=== PATIENT | female | born 1985 | race Caucasian/White ===

== ENCOUNTER 2024-10-27 21:55 | Emergency (ER) | payer SELFPAY ==
[2024-10-27] VITALS (8 sets, daily range): BP systolic 119–138; BP diastolic 79–99
[~2024-10-27] VITALS: Ht 152.4 cm; Wt 68.1 kg
[2024-10-27] MEDS ORDERED: SODIUM CHLORIDE 0.9% 1,000 ML IV ONE (22:10)
[2024-10-27] MEDS ORDERED: ASPIRINCHW 81MG PO (22:12)
[2024-10-27] MEDS ORDERED: KETOROLAC TROMETHAMINE 30 MG/ML SDV IV ONE (22:15)
[2024-10-27 22:30] LABS: BASO% 0.2 % (0-3); EOS% 1.9 % (0-8); HEMATOCRIT 40.2 % (37.0-47.0); HEMOGLOBIN 13.3 g/dl (12.0-16.0); LYMPH% 30.9 % (15-41); MEAN CELL VOLUME 91.8 fL CALC (80.0-100.0); MEAN CORPUSCULAR HGB 30.4 pG CALC (26.0-32.0); MEAN CORPUSCULAR HGB CONC 33.1 g/dL CAL (32.0-36.0); MONO% 9.8 % (2-13); NEUT# 2.44 thou/uL (2.00-7.15); NEUT% 57.2 % (42-76); RED BLOOD COUNT 4.38 mill/uL (4.20-5.60)
[2024-10-27 22:53] LABS: ALBUMIN 4.4 g/dL (3.2-5.0); BILIRUBIN, TOTAL 0.5 mg/dL (0.02-1.3); CREATININE 0.8 mg/dL (0.5-1.0); POTASSIUM 3.8 mmol/l (3.5-5.1)
[2024-10-28] VITALS: BP 113/84
[2024-10-28] MEDS ORDERED: traMADol HCL 50 MG/TAB PO ONE (00:25)
[2024-10-28 00:27] LABS: URINE BILIRUBIN - DIPSTICK Negative (NEGATIVE); URINE BLOOD DIPSTICK Large (NEGATIVE); URINE COLOR Yellow; URINE GLUCOSE - DIPSTICK Negative (NEGATIVE); URINE KETONE Trace mg/dL (NEGATIVE); URINE LEUK ESTERASE Trace (NEGATIVE); URINE NITRITE - DIPSTICK Positive (Negative); URINE PROTEIN - DIPSTICK 30 mg/dL (NEG-TRACE)
[2024-10-28 00:28] LABS: URINE BACTERIA MANY hpf; URINE RBC 25-50 RBC/hpf (0-5)
[2024-10-28 00:30] VITALS: BP 127/86
[2024-10-28] MEDS ORDERED: BACTRIM DS1 TAB PO (00:33)
[2024-10-28] MEDS ORDERED: SULFAMETHOXAZOLE W/TRIMETHOPRI 1 COMBO TAB PO ONE (00:35)
[2024-10-28 00:45] VITALS: BP 120/86
[2024-10-28 01:00] VITALS: BP 118/86
== END 2024-10-28 01:25 | disposition home or self-care (01) | DRG 760 ==
LOC: ED 21:55
PROVIDERS: Emergency Medicine
DX: N94.6 Dysmenorrhea, unspecified (principal); N39.0 Urinary tract infection, site not specified; B96.20 Unspecified Escherichia coli [E. coli] as the cause of diseases classified elsewhere; Z72.0 Tobacco use